=== PATIENT | male | born 1960 | race African-American/Black ===

== ENCOUNTER 2017-10-07 04:21 | Emergency (ER) | payer OTHER ==
[~2017-10-07] VITALS: Ht 188 cm; Wt 79.5 kg
[~2017-10-07 04:21] MED LIST: ALBU8I INH; HYDR-2768 PO; NAPR-576 PO; PERC5TAB12 PO; PRIL40CA PO; ZOFR8TAB PO
[2017-10-07 04:22] VITALS: BP 168/89; PULSE 70; RESP 18; TEMP 98.4; O2SAT 96
[2017-10-07] MEDS ORDERED: IPRASOL INH (04:43)
[2017-10-07] MEDS ORDERED: REFR0.5D9 EACH EYE (04:43)
[2017-10-07] MEDS ORDERED: AMLO10TA2 PO (04:43)
[2017-10-07] MEDS ORDERED: NAPR500T2 PO (04:43)
[2017-10-07] MEDS ORDERED: VENTAER INH (04:43)
[2017-10-07] MEDS ORDERED: PRED20 PO (04:43)
[2017-10-07] MEDS ORDERED: BIONSOL EACH EYE (04:43)
[2017-10-07] MEDS ORDERED: DOXY100C PO (04:43)
--- NOTE | 2017-10-07 05:14 | PD ---
HPI Chief Complaint: Medical Clearance Time Seen by Provider: 05:06 Travel History International Travel<30 days: No Contact w/Intl Traveler<30days: No Traveled to known affect area: No History of Present Illness HPI Patient is a 57-year-old male on doxycycline and prednisone for an upper respiratory infection presents emergency department for nonspecific numbness and tingling symptoms as well as feeling of heart fluttering. Patient states that this happened once tonight after he drank a few beers. He thinks it has got something to do with the medications he is prescribed, he states currently the symptoms are resolved. Denies any chest pain shortness breath abdominal pain nausea vomiting focalized weakness. States his symptoms are mild, resolved , context and associated signs and symptoms as above PFSH Past Medical History Heart Rhythm Problems: Yes (HEART MURMUR) Cancer: No Cardiovascular Problems: Yes (HTN, CAD) COPD: Yes Diabetes: No Diminished Hearing: No Endocrine: No Gastrointestinal Disorders: Yes (GERD) GERD: Yes Genitourinary: No Hepatitis: No Hiatal Hernia: Yes (REPAIRED) Hypertension: Yes Immune Disorder: No Musculoskeletal: Yes (LUMBAR DDD, ARTHRITIS) Neurologic: No Psychiatric: No Respiratory: Yes (COPD) Thyroid Disease: No Tetanus Vaccination: < 5 Years Influenza Vaccination: Yes Past Surgical History Abdominal Surgery: No AICD: No Cardiac Surgery: No Ear Surgery: No Endocrine Surgery: No Eye Surgery: No Genitourinary Surgery: No Gynecologic Surgery: No Joint Replacement: No Oral Surgery: No Pacemaker: No Thoracic Surgery: Yes (HIATAL HERNIA REPAIR) Other Surgery: Yes (L hand/wrist surg) Social History Alcohol Use: Yes (BEERS/WEEKENDS) Tobacco Use: No (quit) Substance Use: No Allergies-Medications (Allergen,Severity, Reaction): Coded Allergies: tramadol (Unverified Allergy, Unknown, 10/07/17) Reported Meds & Prescriptions Reported Meds & Active Scripts Active Reported Prednisone 20 Mg Tab 20 Mg PO DAILY Doxycycline Hyclate 100 Mg Cap 100 Mg PO BID Bion Tears PF Opthalmic Drops (Dextran 70 0.1%-Hypromellose 2910 0.3% Drops) 0.1 -0.3%/0.4 Ml Soln 1-2 Drop EACH EYE PRN PRN Refresh Plus Unit-Dose 0.5% Opth (Carboxymethylcellulose Sodium 0.5% Opth) 0.5% Drops 1 Drop EACH EYE QID Duoneb (Ipratropium-Albuterol Neb) 0.5-2.5 Mg/3 Ml Neb 1 Nebule INH Q6HR NEB Amlodipine (Amlodipine Besylate) 10 Mg Tab 10 Mg PO DAILY Naproxen 500 Mg Tab 500 Mg PO BID Ventolin Hfa 18 GM Inh (Albuterol Sulfate) 90 Mcg/Act Aer 2 Puff INH Q6H PRN Review of Systems Except as stated in HPI: all other systems reviewed are Neg Physical Exam Narrative GENERAL: Well-nourished, well-developed patient. SKIN: Focused skin assessment warm/dry. HEAD: Normocephalic. EYES: No scleral icterus. No injection or drainage. NECK: Supple, trachea midline. No JVD or lymphadenopathy. CARDIOVASCULAR: Regular rate and rhythm without murmurs, gallops, or rubs. RESPIRATORY: Breath sounds equal bilaterally. No accessory muscle use. GASTROINTESTINAL: Abdomen soft, non-tender, nondistended. MUSCULOSKELETAL: No cyanosis, or edema. NEUROLOGICAL: Cranial nerves II through XII grossly intact and nonfocal, 5 out of 5 strength in all 4 extremities, cerebellar testing negative, ambulance with an even narrow-base gait BACK: Nontender without obvious deformity. No CVA tenderness. Data Data Last Documented VS Vital Signs Date Time Temp Pulse Resp B/P (MAP) Pulse Ox O2 Delivery O2 Flow Rate FiO2 10/07/17 05:18 10/07/17 04:22 98.4 70 18 96 Room Air Orders Orders Ed Discharge Order (10/07/17 05:14) MDM Medical Decision Making Medical Screen Exam Complete: Yes Emergency Medical Condition: Yes Differential Diagnosis Medication reaction, anxiety reaction, acute medical emergency highly unlikely. Narrative Course Patient room to the emergency department, symptoms now resolved, he appears well and in no obvious distress with a reassuring physical examination. There is no indication for further workup at this time and he is stable for discharge. Discussed at his discretion he can discontinue the prednisone or continue it until it is gone depending on if he can tolerate the side effects. Diagnosis Primary Impression: Medication reaction Disposition: DISCHARGE HOME Condition: Stable Humberto Kovacs MD Oct 07, 2017 05:14
== END 2017-10-07 05:51 | disposition home or self-care (01) ==
LOC: NEPE 04:21
DX: I49.8 Other specified cardiac arrhythmias (principal); T38.0X5A Adverse effect of glucocorticoids and synthetic analogues, initial encounter; I10 Essential (primary) hypertension; I25.10 Atherosclerotic heart disease of native coronary artery without angina pectoris; J44.9 Chronic obstructive pulmonary disease, unspecified; M19.90 Unspecified osteoarthritis, unspecified site; Z88.8 Allergy status to other drugs, medicaments and biological substances; Z79.899 Other long term (current) drug therapy
CPT/HCPCS: 99281

== ENCOUNTER 2018-03-01 11:03 | Inpatient (IN) | payer OTHER ==
[~2018-03-01] VITALS: Ht 188 cm; Wt 71.8 kg
[~2018-03-01 11:03] MED LIST changes: -ALBU8I INH; +AMLO10TA2 PO; +BIONSOL EACH EYE; +DOXY100C PO; -HYDR-2768 PO; +IPRASOL INH; -NAPR-576 PO; +NAPR500T2 PO; -PERC5TAB12 PO; +PRED20 PO; -PRIL40CA PO; +REFR0.5D9 EACH EYE; +VENTAER INH; -ZOFR8TAB PO
[2018-03-01 11:11] VITALS: BP 128/89; PULSE 73; RESP 16; TEMP 97.8; O2SAT 99
[2018-03-01] MEDS ORDERED: ISOS30TA3 PO (11:21)
[2018-03-01] MEDS ORDERED: ASPI-516 CHEW (11:21)
[2018-03-01] MEDS ORDERED: TERB1CRE11 TOPICAL (11:21)
--- NOTE | 2018-03-01 11:29 | PD ---
HPI Chief Complaint: Chest Pain Time Seen by Provider: 11:11 Travel History International Travel<30 days: No Contact w/Intl Traveler<30days: No Traveled to known affect area: No History of Present Illness HPI 57-year-old male presents to the emergency department for evaluation of left lower chest pain that started this morning around 830 this morning. He states that he was going to the [place] for a CT of his neck that was scheduled for him. He was getting dressed when he felt sharp pain in his left lower chest. Patient states that he got his CT scan done and then went to see his primary care physician who then referred him to the emergency department. Patient reports history of CAD, hypertension, hyperlipidemia, angina, borderline diabetes, COPD. Patient states he was supposed to have a cardiac catheterization done several months ago, but was unable to do it due to not having a ride. Patient denies any recent stress test. 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 Patient currently rates the pain 4/10 to the left lower chest, sharp and stabbing, worse with movement and palpation. He reports associated nausea. He denies radiation of the pain. Patient reports chronic shortness of breath from COPD. He denies any worsening dyspnea. Patient denies history of CHF. He states he took one baby aspirin this morning. Moderate severity. PFSH Past Medical History Heart Rhythm Problems: Yes (HEART MURMUR) Cancer: No High Cholesterol: Yes Chest Pain: Yes COPD: Yes Coronary Artery Disease: Yes Diabetes: No Diminished Hearing: No Endocrine: No GERD: Yes Hepatitis: No Hiatal Hernia: Yes (REPAIRED) Hypertension: Yes Immune Disorder: No Inguinal Hernia: Yes Musculoskeletal: Yes (LUMBAR DDD, ARTHRITIS) Past Surgical History Abdominal Surgery: No AICD: No Cardiac Surgery: No Ear Surgery: No Endocrine Surgery: No Eye Surgery: No Genitourinary Surgery: No Gynecologic Surgery: No Joint Replacement: No Oral Surgery: No Thoracic Surgery: Yes (HIATAL HERNIA REPAIR) Other Surgery: Yes (L hand/wrist surg) Social History Alcohol Use: Yes (BEERS/WEEKENDS) Tobacco Use: No (quit) Substance Use: No Allergies-Medications (Allergen,Severity, Reaction): Coded Allergies: prednisone (Verified Allergy, Intermediate, Chest Pain, 03/01/18) tramadol (Unverified Allergy, Unknown, 03/01/18) Reported Meds & Prescriptions Reported Meds & Active Scripts Active Reported Terbinafine Topical 1 % Cream 1 Applic TOPICAL BID Aspirin 81 Mg Chew 81 Mg CHEW DAILY Isosorbide Mononitrate ER (Isosorbide Mononitrate) 30 Mg Raul 30 Mg PO DAILY Refresh Plus Unit-Dose 0.5% Opth (Carboxymethylcellulose Sodium 0.5% Opth) 0.5% Drops 1 Drop EACH EYE QID Duoneb (Ipratropium-Albuterol Neb) 0.5-2.5 Mg/3 Ml Neb 1 Nebule INH Q6HR NEB Amlodipine (Amlodipine Besylate) 10 Mg Tab 10 Mg PO DAILY Naproxen 500 Mg Tab 500 Mg PO BID Ventolin Hfa 18 GM Inh (Albuterol Sulfate) 90 Mcg/Act Aer 2 Puff INH Q6H PRN Review of Systems Except as stated in HPI: all other systems reviewed are Neg Physical Exam Narrative GENERAL: Well-nourished, well-developed male patient, ambulatory. Afebrile. SKIN: Focused skin assessment warm/dry. HEAD: Normocephalic. Atraumatic. EYES: No scleral icterus. No injection or drainage. NECK: Supple, trachea midline. No JVD or lymphadenopathy. CARDIOVASCULAR: Regular rate and rhythm without murmurs, gallops, or rubs. Bilateral radial and pedal pulses are 2+. RESPIRATORY: Breath sounds equal bilaterally. No accessory muscle use. Lung sounds are clear to auscultation. GASTROINTESTINAL: Abdomen soft, non-tender, nondistended. MUSCULOSKELETAL: No cyanosis, or edema. BACK: Nontender without obvious deformity. No CVA tenderness. Data Data Last Documented VS Vital Signs Date Time Temp Pulse Resp B/P (MAP) Pulse Ox O2 Delivery O2 Flow Rate FiO2 03/01/18 11:52 58 16 125/84 (98) 97 Room Air 03/01/18 11:11 97.8 Orders Orders Electrocardiogram (03/01/18 11:21) Basic Metabolic Panel (Bmp) (03/01/18 11:21) B-Type Natriuretic Peptide (03/01/18 11:21) Ckmb (Isoenzyme) Profile (03/01/18 11:21) Complete Blood Count With Diff (03/01/18 11:21) Magnesium (Mg) (03/01/18 11:21) Prothrombin Time / Inr (Pt) (03/01/18 11:21) Act Partial Throm Time (Ptt) (03/01/18 11:21) Troponin I (03/01/18 11:21) Chest, Single Ap (03/01/18 11:21) Ecg Monitoring (03/01/18 11:21) Bilateral Bp Monitoring (03/01/18 11:21) Iv Access Insert/Monitor (03/01/18 11:21) Oximetry (03/01/18 11:21) Oxygen Administration (03/01/18 11:21) Aspirin Chew (Aspirin Chew) (03/01/18 11:30) Sodium Chloride 0.9% Flush (Ns Flush) (03/01/18 11:30) CKMB (03/01/18 11:20) CKMB% (03/01/18 11:20) Labs Laboratory Tests Test 03/01/18 11:20 White Blood Count 6.9 TH/MM3 Red Blood Count 5.11 MIL/MM3 Hemoglobin 15.0 GM/DL Hematocrit 45.4 % Mean Corpuscular Volume 88.8 FL Mean Corpuscular Hemoglobin 29.3 PG Mean Corpuscular Hemoglobin Concent 33.0 % Red Cell Distribution Width 13.7 % Platelet Count 276 TH/MM3 Mean Platelet Volume 6.4 FL Neutrophils (%) (Auto) 71.8 % Lymphocytes (%) (Auto) 16.9 % Monocytes (%) (Auto) 10.0 % Eosinophils (%) (Auto) 0.5 % Basophils (%) (Auto) 0.8 % Neutrophils # (Auto) 5.0 TH/MM3 Lymphocytes # (Auto) 1.2 TH/MM3 Monocytes # (Auto) 0.7 TH/MM3 Eosinophils # (Auto) 0.0 TH/MM3 Basophils # (Auto) 0.1 TH/MM3 CBC Comment DIFF FINAL Differential Comment Prothrombin Time 10.0 SEC Prothromb Time International Ratio 1.0 RATIO Activated Partial Thromboplast Time 25.3 SEC Blood Urea Nitrogen 14 MG/DL Creatinine 0.83 MG/DL Random Glucose 96 MG/DL Calcium Level 8.2 MG/DL Magnesium Level 2.3 MG/DL Sodium Level 137 MEQ/L Potassium Level 4.0 MEQ/L Chloride Level 105 MEQ/L Carbon Dioxide Level 23.1 MEQ/L Anion Gap 9 MEQ/L Estimat Glomerular Filtration Rate 117 ML/MIN Total Creatine Kinase 390 U/L Creatine Kinase MB 4.2 NG/ML Creatine Kinase MB % 1.1 % Troponin I LESS THAN 0.02 NG/ML B-Type Natriuretic Peptide 9 PG/ML MDM Medical Decision Making Medical Screen Exam Complete: Yes Emergency Medical Condition: Yes Medical Record Reviewed: Yes Interpretation(s) Last Impressions Chest X-Ray 03/01/18 1121 Signed Impressions: CONCLUSION: Negative for acute process Differential Diagnosis ACS vs. chest wall pain vs. anxiety vs. pneumonia vs. pneumothorax vs. PE Narrative Course 57-year-old male presents to the emergency department for left lower chest pain that started this morning. EKG shows sinus rhythm, heart rate 66, no acute ST changes. IV access established. CBC, BMP, magnesium, CK, troponin, BNP, PTT, PT/INR, chest x-ray ordered and pending. Patient is given aspirin 81 mg p.o. CBC shows no acute abnormality. BMP shows no acute abnormality. Magnesium is 2.3. CK is 390. Troponin is less than 0.02. BNP is 9. Coags are unremarkable. Chest x-ray is negative for acute process. Patient will be admitted for chest pain center for repeat cardiac enzymes and EKGs. Diagnosis Primary Impression: Chest pain Qualified Codes: R07.9 - Chest pain, unspecified Admitting Information Admitting Physician Requests: Jamila Enciso Mar 01, 2018 11:29
[2018-03-01] MEDS ORDERED: SODIUM CHLORIDE 0.9% FLUSH 10 ML FLUSH IVF PRN (11:30)
[2018-03-01] MEDS ORDERED: ASPIRIN 81 MG CHEW TAB PO ONE (11:30)
--- NOTE | 2018-03-01 11:43 | RADRPT ---
EXAM DATE: 03/01/2018 11:36 AM EDT AGE/SEX: 57 years / Male INDICATIONS: Chest pain this morning. CLINICAL DATA: This is the patient's initial encounter. Patient reports that signs and symptoms have been present for 1 day and indicates a pain score of 6/10. MEDICAL/SURGICAL HISTORY: Hypertension. Chronic obstructive pulmonary disease. Coronary artery disease. None. COMPARISON: No prior exams available for comparison. FINDINGS: A single AP view of the chest demonstrates the lungs to be symmetrically aerated without evidence of mass, infiltrate or effusion. The cardiomediastinal contours are unremarkable. Osseous structures a re intact. CONCLUSION: Negative for acute process Electronically signed by: Lele Li MD 03/01/2018 11:41 AM EDT
[2018-03-01 11:52] VITALS: BP 125/84; PULSE 58; RESP 16; O2SAT 97
[2018-03-01 11:52] LABS: BASOPHIL # 0.1 TH/MM3 (0-0.2); BASOPHIL % 0.8 % (0.0-2.0); EOSINOPHIL % 0.5 % (0.0-4.0); HEMATOCRIT 45.4 % (39.0-51.0); LYMPH % 16.9 % (9.0-44.0); LYMPHOCYTE # 1.2 TH/MM3 (1.0-4.8); MEAN CELL VOLUME 88.8 FL (80.0-100.0); MEAN CORPUSCULAR HEMOGLOBIN 29.3 PG (27.0-34.0); MEAN PLATELET VOLUME 6.4 FL (7.0-11.0); MONOCYTE # 0.7 TH/MM3 (0-0.9); NEUT % 71.8 % (16.0-70.0); PLATELET COUNT 276 TH/MM3 (150-450); RED BLOOD COUNT 5.11 MIL/MM3 (4.50-5.90); RED CELL DISTRIBUTION WIDTH 13.7 % (11.6-17.2); WHITE BLOOD COUNT 6.9 TH/MM3 (4.0-11.0)
[2018-03-01 12:03] LABS: BICARBONATE 23.1 MEQ/L (21.0-32.0); BLOOD UREA NITROGEN 14 MG/DL (7-18); CALCIUM 8.2 MG/DL (8.5-10.1); CHLORIDE 105 MEQ/L (98-107); CREATININE 0.83 MG/DL (0.60-1.30); GLOMERULAR FILTRATION RATE 117 ML/MIN (>89); GLUCOSE,RANDOM 96 MG/DL (74-106); MAGNESIUM 2.3 MG/DL (1.5-2.5); SODIUM (NA) 137 MEQ/L (136-145)
[2018-03-01 12:08] LABS: TROPONIN I LESS THAN 0.02 NG/ML (0.02-0.05)
[2018-03-01] MEDS ORDERED: SODIUM CHLORIDE 0.9% FLUSH 10 ML FLUSH IV FLUSH PRN (13:00)
[2018-03-01] MEDS ORDERED: ONDANSETRON ODT 4 MG TAB PO PRN (13:00)
[2018-03-01] MEDS ORDERED: NITROGLYCERIN 0.4 MG SL 25 TABS/BTL SL PRN (13:00)
--- NOTE | 2018-03-01 13:51 | HHI.HP ---
HPI Primary Care Physician [facility] Chief Complaint Chest pain History of Present Illness 57-year-old male history of hypertension and COPD presents emergency room for further evaluation chest pain and headache. Onset 830 am. Occurred 15 minutes after taking Imdur. Developed left sided headache. Moderate severity. A few minutes chanell developed left anterior chest pain. Characterized as "being punched." Moderate in severity. Associated symptoms included nausea and diaphoresis. Denied dyspnea or vomiting. Duration of moderate chest discomfort 3 hours. Currently chest discomfort described as a mild ache with intermittent sharp, "nagging" pain. Deep breathing makes discomfort worse. No particular movement or position makes pain better or worse. Headache since resolved. Scheduled for a CT of neck today [facility]. After scan completed requested to see his PCP regarding above symptoms. The [facility] recommended EMS transport to ER for further evaluation. Recent abnormal nocardial perfusion study 5 months ago.. Cardiac catheterization scheduled, he unfortunately unable to keep appointment time due to inability to find ride to facility. Unable to reschedule planned cardiac catheterization since. Imdur started 5 months ago after abnormal cardiac stress test. Cardiac testing completed due to intermittent chest pressure. It was uncertain if his chest pressure was cardiac related verses his COPD. Review of Systems General: No fatigue, weakness, fever, chills, recent illness, or change in appetite. Has been in his general state of health. HEENT: NAIR resolved, no vision changes, no nasal congestion or drainage, no dysphasia CV: Continues to have chest discomfort as stated above. No palpitations. Nonexertional intermittent leg pain. Experiences some exertional chest pain, stating it is difficult for him to determine if discomfort if related to cardiac versus COPD. No history of ID or coronary stents. RESP: History of COPD, use of Combivent and albuterol daily. No recent upper respiratory infection. Respiratory function within his normal limits. GI: No nausea, vomiting, bowel changes, diarrhea, constipation, pain, distention , melena, or blood in the stool. : No dysuria, urgency, frequency EXT: No lower leg edema. Chronic intermittent bilateral lower leg weakness and numbness. MS: No discomfort or change in ROM NEURO: No change in memory, dizziness, difficulty with balance, LOC, or motor/ sensory deficits PSYCH: No anxiety, depression, or suicidal ideation SKIN: No rashes, no concerning lesions Past Family Social History Allergies: Coded Allergies: prednisone (Verified Allergy, Intermediate, Chest Pain, 03/01/18) tramadol (Unverified Allergy, Unknown, 03/01/18) Past Medical History Hypertension, COPD, degenerative disc disease Past Surgical History Hiatal hernia, left hand/wrist sx Reported Medications Reported Meds & Active Scripts Active Reported Terbinafine Topical 1 % Cream 1 Applic TOPICAL BID Aspirin 81 Mg Chew 81 Mg CHEW DAILY Isosorbide Mononitrate ER (Isosorbide Mononitrate) 30 Mg Raul 30 Mg PO DAILY Refresh Plus Unit-Dose 0.5% Opth (Carboxymethylcellulose Sodium 0.5% Opth) 0.5% Drops 1 Drop EACH EYE QID Duoneb (Ipratropium-Albuterol Neb) 0.5-2.5 Mg/3 Ml Neb 1 Nebule INH Q6HR NEB Amlodipine (Amlodipine Besylate) 10 Mg Tab 10 Mg PO DAILY Naproxen 500 Mg Tab 500 Mg PO BID Ventolin Hfa 18 GM Inh (Albuterol Sulfate) 90 Mcg/Act Aer 2 Puff INH Q6H PRN Active Ordered Medications Current Medications Medications (Trade) Dose Ordered Sig/Toni Route Start Time Stop Time Status Last Admin (NS Flush) 2 ml UNSCH PRN IV FLUSH 03/01/18 13:00 (NS Flush) 2 ml BID IV FLUSH 03/01/18 21:00 (Tylenol) 500 mg Q4H PRN PO 03/01/18 13:00 (Nitrostat Sl) 0.4 mg Q5M PRN SL 03/01/18 13:00 (Aspirin) 325 mg DAILY PO 03/02/18 09:00 (Zofran Odt) 4 mg Q6H PRN PO 03/01/18 13:00 Family History Noncontributory for early onset cardiovascular disease. Social History Reports coronary artery disease diagnosed via abnormal myocardial perfusion study 5 months ago. Known hypertension. No known hyperlipidemia or diabetes. Former smoker quit 1 year ago. 36 pack year history. Single. Retired [place]. 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 Past cardiac testing Reports recent abnormal Lexiscan 5 months ago. Missed his scheduled appointment for cardiac catheterization 5 months ago and has been unable to reschedule. Physical Exam Vital Signs Vital Signs Date Time Temp Pulse Resp B/P (MAP) Pulse Ox O2 Delivery O2 Flow Rate FiO2 03/01/18 11:52 58 16 125/84 (98) 97 Room Air 03/01/18 11:25 Room Air 03/01/18 11:25 100 Room Air 03/01/18 11:13 62 16 03/01/18 11:11 97.8 73 16 128/89 (102) 99 Physical Exam GENERAL: Alert WN, WD, NAD, pleasant, -Ch[place]an male HEAD: NC, AT EYES: Sclera clear, conjunctiva without injection, pupils equal and round ENT: Mucous membranes pink and moist, no nasal discharge or bleeding CV: RRR, soft systolic murmur, no rub. no S3-S4. RESP: Diminished lungs throughout bilateral, no crackles, wheeze, or rhonchi, symmetrical chest rise, nonlabored, able to speak in full sentences ABD: Soft, NT, ND, no masses, positive bowel tones EXT: Pulses +2x4, no dependent edema MS: Normal tone x4 extremities, nontender, no obvious deformities, full range of motion NEURO: CN II through CN XII grossly intact, motor strength 5/5 PSYCH: A+O x3, pleasant affect, appropriate speech, mood, insight and judgment SKIN: Normal turgor, normal texture, no lesions, no rashes, brisk cap refill, even hair distribution Laboratory Laboratory Tests Test 03/01/18 11:20 White Blood Count 6.9 Red Blood Count 5.11 Hemoglobin 15.0 Hematocrit 45.4 Mean Corpuscular Volume 88.8 Mean Corpuscular Hemoglobin 29.3 Mean Corpuscular Hemoglobin Concent 33.0 Red Cell Distribution Width 13.7 Platelet Count 276 Mean Platelet Volume 6.4 Neutrophils (%) (Auto) 71.8 Lymphocytes (%) (Auto) 16.9 Monocytes (%) (Auto) 10.0 Eosinophils (%) (Auto) 0.5 Basophils (%) (Auto) 0.8 Neutrophils # (Auto) 5.0 Lymphocytes # (Auto) 1.2 Monocytes # (Auto) 0.7 Eosinophils # (Auto) 0.0 Basophils # (Auto) 0.1 CBC Comment DIFF FINAL Differential Comment Prothrombin Time 10.0 Prothromb Time International Ratio 1.0 Activated Partial Thromboplast Time 25.3 Blood Urea Nitrogen 14 Creatinine 0.83 Random Glucose 96 Calcium Level 8.2 Magnesium Level 2.3 Sodium Level 137 Potassium Level 4.0 Chloride Level 105 Carbon Dioxide Level 23.1 Anion Gap 9 Estimat Glomerular Filtration Rate 117 Total Creatine Kinase 390 Creatine Kinase MB 4.2 Creatine Kinase MB % 1.1 Troponin I LESS THAN 0.02 B-Type Natriuretic Peptide 9 Result Diagram: 03/01/18 1120 03/01/18 112 Imaging Last 24 hours Impressions Chest X-Ray 03/01/18 1121 Signed Impressions: CONCLUSION: Negative for acute process Course EKG NSR, normal axis, possible atrial enlargement, no st t segment changes Caprini VTE Risk Assessment Caprini VTE Risk Assessment: No/Low Risk (score <= 1) Caprini Risk Assessment Model Point Value = 1 Point Value = 2 Point Value = 3 Point Value = 5 Age 41-60 Minor surgery BMI > 25 kg/m2 Swollen legs Varicose veins or History of unexplained or recurrent spontaneous Oral contraceptives or hormone replacement Sepsis (< 1 month) Serious lung disease, including pneumonia (< 1 month) Abnormal pulmonary function Acute myocardial infarction Congestive heart failure (< 1 month) History of inflammatory bowel disease Medical patient at bed rest Age 61-74 Arthroscopic surgery Major open surgery (> 45 min) Laparoscopic surgery (> 45 min) Malignancy Confined to bed (> 72 hours) Immobilizing plaster cast Central venous access Age >= 75 History of VTE Family history of VTE Factor V Leiden Prothrombin [id number] Lupus anticoagulant Anticardiolipin antibodies Elevated serum homocysteine Heparin-induced thrombocytopenia Other congenital or acquired thrombophilia Stroke (< 1 month) Elective arthroplasty Hip, pelvis, or leg fracture Acute spinal cord injury (< 1 month) Prophylaxis Regimen Total Risk Factor Score Risk Level Prophylaxis Regimen 0-1 Low Early ambulation 2 Moderate Order ONE of the following: *Sequential Compression Device (SCD) *Heparin 5000 units SQ BID 3-4 Higher Order ONE of the following medications: *Heparin 5000 units SQ TID *Enoxaparin/Lovenox 40 mg SQ daily (WT < 150 kg, CrCl > 30 mL/min) *Enoxaparin/Lovenox 30 mg SQ daily (WT < 150 kg, CrCl > 10-29 mL/min) *Enoxaparin/Lovenox 30 mg SQ BID (WT < 150 kg, CrCl > 30 mL/min) AND/OR *Sequential Compression Device (SCD) 5 or more Highest Order ONE of the following medications: *Heparin 5000 units SQ TID (Preferred with Epidurals) *Enoxaparin/Lovenox 40 mg SQ daily (WT < 150 kg, CrCl > 30 mL/min) *Enoxaparin/Lovenox 30 mg SQ daily (WT < 150 kg, CrCl > 10-29 mL/min) *Enoxaparin/Lovenox 30 mg SQ BID (WT < 150 kg, CrCl > 30 mL/min) AND *Sequential Compression Device (SCD) Assessment and Plan Assessment and Plan Admitted to chest pain center. Continue ACS protocol initiated ER. Will be seen and evaluated by Dr. Polo Sanchez. Due to reported recent abnormal Lexiscan and pending cardiac catheterization, further recommendations to follow. Discussed possibility of repeating myocardial perfusion study or completing a cardiac cauterization. Wanda Kerns Mar 01, 2018 13:51
[2018-03-01 14:20] VITALS: BP 124/73
[2018-03-01 15:55] VITALS: BP 130/96; PULSE 56; RESP 18; TEMP 98.9; O2SAT 99
[2018-03-01 16:31] LABS: TROPONIN I LESS THAN 0.02 NG/ML (0.02-0.05)
[2018-03-01] MEDS ORDERED: RESP: ALBUTEROL 2.5 MG/3 ML NEB (PRN) NEB (17:00)
[2018-03-01 19:49] VITALS: BP 112/73; PULSE 57; RESP 17; TEMP 98.4; O2SAT 96
--- NOTE | 2018-03-01 19:56 | EKG ---
Date Performed: 03/01/2018 Time Performed: 11:09:44 PTAGE: 57 years EKG: Sinus rhythm NORMAL ECG PREVIOUS TRACING : 02/26/2016 12.26 Since the previous tracing, no significant change noted DOCTOR: Ankita Camilo Interpretating Date/Time 03/01/2018 19:55:04
[2018-03-01 23:00] VITALS: PULSE 54
[2018-03-02] VITALS (18 sets, daily range): BP systolic 134–146; BP diastolic 79–91; PULSE 54–66; RESP 16–20; TEMP 98–98.9; O2SAT 97–98
[2018-03-02] MEDS: ACETAMINOPHEN 500 MG CPLT PO PRN ×2 (00:26→18:47)
[2018-03-02] MEDS: SODIUM CHLORIDE 0.9% FLUSH 10 ML FLUSH IV FLUSH SCH ×3 (00:26→20:41)
[2018-03-02 03:49] LABS: TROPONIN I LESS THAN 0.02 NG/ML (0.02-0.05)
--- NOTE | 2018-03-02 08:21 | HHI.PR ---
Subjective Remarks Follow up for chest pain. The patient reports only brief mild episode of chest pain overnight, resolved on its own. Denies any palpitations or shortness of breath. Denies any other medical complaints. He is looking forward to cardiac catheterization. Objective Vitals Vital Signs Date Time Temp Pulse Resp B/P (MAP) Pulse Ox O2 Delivery O2 Flow Rate FiO2 03/02/18 07:27 98.0 60 20 134/87 (103) 97 03/02/18 04:22 98.3 57 16 145/85 (105) 98 03/02/18 00:07 98.4 63 16 143/83 (103) 98 03/01/18 23:00 54 03/01/18 19:49 98.4 57 17 112/73 (86) 96 03/01/18 15:55 98.9 56 18 130/96 (107) 99 03/01/18 14:20 56 5 124/73 (90) 99 03/01/18 11:52 58 16 125/84 (98) 97 Room Air 03/01/18 11:25 Room Air 03/01/18 11:25 100 Room Air 03/01/18 11:13 62 16 03/01/18 11:11 97.8 73 16 128/89 (102) 99 Result Diagram: 03/01/18 1120 03/01/18 1120 Imaging Last Impressions Chest X-Ray 03/01/18 1121 Signed Impressions: CONCLUSION: Negative for acute process Objective Remarks GENERAL: Well-nourished, well-developed pleasant middle aged AA male patient in [facility]. SKIN: Warm and dry. No rash. HEENT: Normocephalic. Atraumatic. Pupils equal and round. Mucous membranes pink and moist. CARDIOVASCULAR: Regular rate and rhythm. No murmur appreciated. RESPIRATORY: No accessory muscle use. Clear to auscultation. Breath sounds equal bilaterally. GASTROINTESTINAL: Abdomen soft, non-tender, nondistended. Normoactive bowel sounds x4. MUSCULOSKELETAL: No obvious deformities. Extremities without clubbing, cyanosis , or edema. NEUROLOGICAL: Awake and alert. No obvious cranial nerve deficits. Motor grossly within normal limits. Moving all extremities spontaneously. Normal speech. PSYCHIATRIC: Appropriate mood and affect; insight and judgment normal. Medications and IVs Current Medications Medications (Trade) Dose Ordered Sig/Toni Route Start Time Stop Time Status Last Admin (NS Flush) 2 ml UNSCH PRN IV FLUSH 03/01/18 13:00 (NS Flush) 2 ml BID IV FLUSH 03/01/18 21:00 03/02/18 00:26 (Tylenol) 500 mg Q4H PRN PO 03/01/18 13:00 03/02/18 00:26 (Nitrostat Sl) 0.4 mg Q5M PRN SL 03/01/18 13:00 (Aspirin) 325 mg DAILY PO 03/02/18 09:00 (Zofran Odt) 4 mg Q6H PRN PO 03/01/18 13:00 (Norvasc) 10 mg DAILY PO 03/02/18 09:00 (Imdur) 30 mg DAILY PO 03/02/18 09:00 (Albuterol Neb) 2.5 mg Q2HR NEB PRN NEB 03/01/18 17:00 A/P Assessment and Plan 57-year-old male with history of hypertension and COPD presents with chest pain. Chest pain: Initially admitted to [facility], however patient with abnormal nuclear stress test 5 months ago with plans for outpatient cardiac cath, however has been unable to have procedure due to transportation issues. -CXR reviewed and unremarkable -ACS ruled out with negative serial cardiac enzymes 3, and EKG without acute ischemic changes -Obtain records of nuclear stress test done at the OR -Monitor on telemetry -Continue aspirin, imdur -Check lipid panel -Unable to initiate beta-luis angel therapy due to bradycardia -Consult cardiology for cardiac catheterization COPD: Chronic, no wheezing on exam, stable on room air -Continue patient's duo nebs q6h Hypertension: Chronic, BP fairly well controlled -Continue patient's norvasc 10mg daily -Monitor BP, adjust antihypertensives as needed DVT Prophylaxis: teds/SCDs Discharge Planning Await cardiology evaluation, likely going for cardiac catheterization. Mihaela Dahl PA-C Mar 02, 2018 8:21 am
[2018-03-02] MEDS: ISOSORBIDE MONONITRATE 30 MG CR TAB (IMDUR) PO SCH (09:45)
[2018-03-02] MEDS: ASPIRIN 325 MG TAB PO SCH (09:45)
[2018-03-02 11:50] LABS: CHOLESTEROL/ HDL RATIO 1.57 RATIO; HDL CHOLESTEROL 96.7 MG/DL (40.0-60.0)
--- NOTE | 2018-03-02 12:17 | MB ---
cc: Milo Salgado MD DATE: 03/01/2018 HISTORY OF PRESENT ILLNESS: Cesar is a very pleasant 57-year-old gentleman followed in at the [facility], had abnormal nuclear stress test, referred for heart catheterization in [place]. He did not followup with a heart catheterization. He presents to [facility] with chest pain, who was seen by Dr. Polo Sanchez. Dr. Sanchez has recommended to proceed with heart catheterization not receive his nuclear stress. The patient currently resting in bed, in no acute distress. No fevers, chills, cough . PAST MEDICAL HISTORY: Per his History of Present Illness. PHYSICAL EXAMINATION: VITAL SIGNS: Stable. GENERAL: He is alert and oriented x 3. NECK: Supple. No JVD. No bruit. CARDIOVASCULAR: . LUNGS: Clear to auscultation bilaterally. ABDOMEN: Soft, nontender, nondistended with positive bowel sounds. EXTREMITIES: No lower extremity edema. HE HAS THE FOLLOWING DIAGNOSES: 1. Chest pain. 2. Positive myocardial perfusion study. DISCUSSION: At this point in time, I agree with Dr. Sanchez. Given the patient's persistent chest pain requiring evaluation in the emergency room with prior positive myocardial perfusion study that left heart catheterization is medically necessary. The patient denies history of CVA, iodine allergy or no previous blood transfusion. Plan is for left heart catheterization on , 03/02/2018. Discussed at the bedside with the nurse and also Dr. Sanchez. Milo Salgado MD [facility] [place] [facility]/ , 04:51 PM , 05:17 PM
[2018-03-02] MEDS ORDERED: MIDAZOLAM HCL 2 MG/2 ML VIAL ONE (13:41)
[2018-03-02] MEDS ORDERED: HEPARIN-NS/PF INJ 1,500 ML ONE ×2 (13:41→14:21)
[2018-03-02] MEDS ORDERED: LIDOCAINE HCL 1% PF 30 ML VIAL ONE ×2 (13:42→14:38)
[2018-03-02] MEDS ORDERED: ADENOSINE STRESS TEST INJ 90 MG/30 ML VIAL ONE (14:21)
--- NOTE | 2018-03-02 14:43 | MR ---
cc: Milo Salgado MD DATE: 03/02/2018 PROCEDURE: Left heart catheterization, left ventriculography, coronary angiography. INDICATIONS: Unstable angina, reported abnormal myocardial perfusion study in [place], which we do not have the results of and multiple cardiac risk factors. I have discussed the case in collaboration with Dr. Sanchez. We both agreed that the patient needs left heart catheterization based on multiple cardiac risk factors. METHOD: The patient was brought to the cardiac catheterization laboratory, prepped and draped in the usual sterile fashion. 10 mL of 1% lidocaine was used to locally anesthetize the right common femoral artery. A 4-Slovak sheath was placed in the right common femoral artery . FINDINGS: LVEDP is 0. LV pressure is 150/0-1. Ejection fraction 60%. The right coronary artery is large and dominant and has a torres's crook in the proximal segment. It has a proximal 60-70% stenosis. there is mild diffuse disease in the mid-segment up to 30% angiographically. Left main coronary artery has no significant disease angiographically. Left circumflex vessel has no significant disease angiographically. First obtuse marginal vessel is a small vessel, 2 mm in diameter. No significant disease angiographically. At that segment that there is 150 degree bend with a 30 to 40% stenosis. The AV groove of the left circumflex then gives off a moderate to large-sized obtuse marginal vessel, which bifurcates, has an ostial 20-30% stenosis proximal to the bifurcation. LAD is large and transapical, 5 mm diameter proximal, is a transapical vessel. The diagonal vessel is a large vessel, 3 mm in diameter with no significant disease in the graft. CONCLUSION: Unstable angina. Potential culprit 70% proximal right coronary artery stenosis. PLAN: FFR further than evaluation. Milo Salgado MD AWEllie/KIRBY , 02:17 PM , 02:42 PM
[2018-03-02] MEDS ORDERED: SODIUM CHLORIDE 0.9% FLUSH 10 ML FLUSH IV FLUSH PRN (15:00)
[2018-03-02] MEDS ORDERED: MISC INFORMATION XX ONE (15:00)
--- NOTE | 2018-03-02 15:06 | CATHPROC ---
[facility] HIS Report Study Information Study Number Admission Scheduled Start Study Start [id number] Mar 01 2018 12:37PM 03/02/2018 Mar 02 2018 1:25PM [place] [facility]iac Catheterization Admit Source Facility Department Emergency department [facility] - Box Truck Owner Operator Physician and Clinical Staff Initial Milo East Watch Engineer Lenard RN, Fermin Recorder Gabriel Martinez,RT(R) Rubia Matos,RT(R) (BS) Procedures Performed Procedure Location (Site) Vessel Name Coronary Angiograms LCA Left Coronary Coronary Angiograms RCA Right Coronary LV Gram-hand inj. LV LV Ventricle Wire insertion Fem Art (right) Femoral Art Equipment Time Principal System Software Engineer Description Size Mfg Part Number Used/Scraped TRANSDUCER, TRUWAVE [id number] 14:04 PARKINSON ARREAGA * Used W/STOCKCOCK *[id number] TRANSDUCER, TRUWAVE [id number] 14:28 PARKINSON ARREAGA * Used W/STOCKCOCK *[id number] *[id number] *[id number] *[id number] 14:04 [employer]ES BLANKET,WARM AIR CCL * Used *[id number] 14:28 [employer] BLANKET,WARM AIR CCL * Used *[id number] 14:04 [employer] IND[employer]RIES PACK, CCL CUSTOM * Used *[id number] 14:28 [employer] PACK, CCL CUSTOM * Used *[id number] 14:28 MEDLINE PACER PEN, SKIN DUAL W/ RULER * Used *[id number] 14:04 MEDLINE PACER PEN, SKIN DUAL W/ RULER * Used *[id number] 14:30 [employer] MEDICAL PACK, ANGIOPLASTY * [id number] Used [id number] 14:29 [employer] MEDICAL SHEATH, FR6.5 PRELUDE 11CM FR 6.5 038ACT Used *[id number] 14:28 [employer]IT MEDICAL WIRE, 3MMJ .035 180CM 180CM Used *[id number] 14:04 [employer] MEDICAL WIRE, 3MMJ .035 180CM 180CM Used *[id number] 14:04 NAMIC MANIFOLD, 4 PORT * Used *[id number] 14:28 NAMIC MANIFOLD, 4 PORT * Used *[id number] 14:28 [employer]COMED OMNIPAQUE, 350 MG, 150ML 150ML [id number] Used 14:04 [employer]COMED OMNIPAQUE, 350 MG, 150ML 150ML [id number] Used [id number] 14:04 TERUMO MEDICAL SHEATH, FR4 TERUMO (10CM) FR 4 Used *[id number] 14:37 [employer] PRIME WIRE, VERRATA 185CM 185CM Used *[id number] Equipment Model, Serial, Lot Number and Expiration Data Description Model Number Serial Number Lot Number Expiration Date PRIME WIRE, VERRATA 185CM [id number] 02-02-2021 History: Allergies Allergy Reaction tramadol prednisone Chest Pain History: Risk Factors Family History of Hypertension Dyslipidemia Previous MS Previous Heart Failure Premature CAD Yes Yes Yes No No Prior Valve Prior PCI Prior CABG Surgery No No No Cerebrovascular Peripheral Artery Chronic Lung On Dialysis Diabetes Disease Disease Disease No No No Yes No History: Stress Tests Stress or Imaging Studies Performed Yes Standard Exercise Stress Test No Stress Echo No Stress Test SPECT Stress Test SPECT Result Yes Unavailable Stress Test CMR No Cardiac CTA Coronary Calcium Score No No History: Other Current Smoker Method Packs a Day Years Used Pack Years No Cigarettes 1 36 36 Labs Hgb (g/dl) Hct (%) WBC (l/cumm) Platelets (thousands) 11.60-17.00 35.00-51.00 4.00-11.00 150.00-450.00 15.0 45.4 6.9 276 Glucose (mg/dl) BUN (mg/dl) Creatinine (mg/dl) BUN:Creatinine (1:x) 74.00-106.00 7.00-18.00 0.50-1.30 10.00-20.00 96 14 0.8 17.5 Na (meq/l) K (meq/l) 136.00-145.00 3.50-5.10 137 4 INR (PTT:PT) 0.90-1.10 1 Troponin I (ng/ml) CPK-MB (ng/ML) 0.02-0.05 0.50-3.60 0.02 Not Drawn Medication Medication Total Dose (Bolus/Oral) Medication Total Dosage/Unit 1% XYLOCAINE 40 mL FENTANYL 50 mcg HEPARIN 6000 units VERSED 2 mg Medications (Bolus/Oral) Medication Time Given Dosage/Unit Administered By Reason VERSED 03/02/2018 2:00:59 PM 1 mg Fermin Weinberg RN 1 mg VERSED given in lab by Fermin Weinberg RN via Peripheral IV. Ordered by Milo Salgado. FENTANYL 03/02/2018 2:01:49 PM 25 mcg Fermin Weinberg RN 25 mcg FENTANYL given in lab by Fermin Weinberg RN in Left Antecubital via Peripheral IV. Ordered by Milo Godwin. 1% XYLOCAINE 03/02/2018 2:03:56 PM 20 mL Milo Salgado 20 mL 1% XYLOCAINE given in lab by Milo Salgado in Right Groin via Subcutaneous. Ordered by Milo Lennon. VERSED 03/02/2018 2:37:59 PM 1 mg Fermin Weinberg RN 1 mg VERSED given in lab by Fermin Weinberg RN via Peripheral IV. Ordered by Milo Salgado. FENTANYL 03/02/2018 2:38:12 PM 25 mcg Fermin Weinberg RN 25 mcg FENTANYL given in lab by Fermin Weinberg RN via Peripheral IV. Ordered by Milo Salgado. 1% XYLOCAINE 03/02/2018 2:39:39 PM 20 mL Milo Salgado 20 mL 1% XYLOCAINE given in lab by Milo Salgado in Right Groin via Subcutaneous. Ordered by Milo Lennon. HEPARIN 03/02/2018 2:40:16 PM 6000 units Fermin Weinberg RN 6000 units HEPARIN given in lab by Fermin Weinberg RN via Peripheral IV. Ordered by Milo Salgado. Medication (Drip) Medication Time Given Dosage/Unit Concentration/Unit Diluent (ml) Solution ADENOSINE DRIP 03/02/2018 2:46:52 PM 140 mcg/kg/min 90 mg 90 NaCl .9 140 mcg/kg/min ADENOSINE DRIP given in lab by Fermin Weinberg RN via Peripheral IV. Pump/Drip Flow = 646 .8 ml/hr using NaCl .9 with a concentration of 90 mg in 90 ml. Ordered by Milo Salgado. ADENOSINE DRIP 03/02/2018 2:51:13 PM 0 units/hr 0 D5W STOPPED 0 units/hr ADENOSINE DRIP STOPPED given in lab by Fermin Weinberg RN. Pump/Drip Flow = 0 ml/hr using D5W . Ordered by Milo Salgado. IV Solutions 03/02/2018 1:44:27 PM 0 mL (IV) 500 NaCl .9 Patient arrived on IV Solutions given by Damian, Milo in Left Antecubital via Peripheral IV. Pump /Drip Flow = 20 ml/hr using NaCl .9. Ordered by Milo Salgado. Initial Case Assessment Cardiovascular HR Rhythm NIBP Chest Pain 65 sr 148/100 0 Edema Present Skin color Skin None Normal Warm Dry Circulatory - Right Pulses Posterior Tibial Femoral 3 3 Scale (0,1,2,3,4,d) Circulatory - Left Pulses Posterior Tibial Femoral 3 3 Scale (0,1,2,3,4,d) Neurological State Oriented to time-place- Alert Moves all extremities person Final Case Assessment Cardiovascular HR Rhythm NIBP Chest Pain 60 sr 121/76 0 Edema Present Skin color Skin None Normal Warm Dry Circulatory - Right Pulses Posterior Tibial Femoral 3 3 Scale (0,1,2,3,4,d) Circulatory - Left Pulses Posterior Tibial Femoral 3 3 Scale (0,1,2,3,4,d) Neurological State Oriented to time-place- Alert Moves all extremities person Respiration - General Respiration Rate SpO2 (%) O2 (lpm) (B/min) 18 96 96 Chronological Log Time Study Chronological Log 13:29:59 Patient arrived via Bed. 13:30:01 Patient Name, D.O.B, / Armband Verified By R.N. 13:30:02 Consent signed by the physician and the patient and verified by the Box Truck Owner Operator staff. 13:30:03 Pre-op and post- op instructions given; patient acknowledges understanding of instructions. 13:30:25 Verbal Stimulation=2 Physical Stimulation=2 Airway=2 Respiration=2 TOTAL=8. (0=absent, 1=li mited, 2=present) 13:30:35 Presedation assessment performed by Box Truck Owner Operator RN. 13:30:37 Patient has been NPO for More than 6Hrs. 13:30:41 Skin Breakdown-none present per patient. Vitals capture started with the following parameters, Patient=Adult, Interval=5 min, Initial Pr vfuvdr=692 mmHg, 13:35:44 Deflation Rate=5 mmHg, Cuff placed on Left Arm 13:36:12 HR=80 bpm, DAEA=691/109 mmhg, SpO2=98.0 %, Resp=24 B/min, Goss=2 13:38:17 Reference ECG taken 13:41:24 HR=73 bpm, FPNU=623/93 mmhg, ChV6=398.0 %, Resp=15 B/min, Goss=2 13:43:47 A # 20 IV was noted in the Antecubital (left). Grade = 0 Patient arrived on IV Solutions given by Milo Salgado in Left Antecubital via Peripheral IV . Pump/Drip Flow = 20 13:44:27 ml/hr using NaCl .9. Ordered by Milo Salgado. 13:46:23 HR=69 bpm, JOTN=233/100 mmhg, SpO2=98.0 %, Resp=10 B/min, Goss=2 Assessment: Initial Case, HR=65 BPM, Rhythm=sr, ZQNV=859/100 mmhg, Chest Pain=0, Edema=None, Co lilian=Normal, Skin = Warm, Dry 13:48:32 Right Pulses: Post Tib=3, Femoral=3 Left Pulses: Post Tib=3, Femoral=3 Neurological: State=Alert, Ox3, WELCH 13:49:01 Bilateral groins prepped with 2% chlorhexidine, and draped after a 3 minute waiting time. 13:49:32 Pressure channel 1 zeroed. 13:50:56 MD paged 13:51:08 HR=69 bpm, UZWE=016/104 mmhg, SpO2=98.0 %, Resp=16 B/min, Goss=2 13:56:13 HR=62 bpm, WLFP=624/96 mmhg, SpO2=96.0 %, Resp=16 B/min, Goss=2 14:00:49 MD arrived. 14:00:59 1 mg VERSED given in lab by Fermin Weinberg RN via Peripheral IV. Ordered by Milo Salgado. 14:01:20 HR=67 bpm, KVCT=156/82 mmhg, SpO2=96.0 %, Resp=18 B/min, Goss=2 14:01:49 25 mcg FENTANYL given in lab by Fermin Weinberg RN in Left Antecubital via Peripheral IV. Orde red by Milo Salgado. Time Out. Correct patient, correct procedure, correct physician, labs, allergies, and equipment verified with lab support service tech 14:03:27 team present. Fire risk assesment completed (see hard stop sheet for coding). Time Out Conc urred by MD and individual staff in procedure. 14:03:33 Presedation re-assessment performed by Box Truck Owner Operator RN. 14:03:35 Case Start 14:03:36 Verbal Stimulation=2 Physical Stimulation=2 Airway=2 Respiration=2 TOTAL=8. (0=absent, 1=li mited, 2=present) 20 mL 1% XYLOCAINE given in lab by Milo Salgado in Right Groin via Subcutaneous. Ordered by Damian, 14:03:56 Milo. 14:04:11 Access site was Right Femoral Artery. 14:04:32 A SHEATH, FR4 TERUMO (10CM) FR 4 was advanced into the Fem Art (right) using the Percutaneo us technique. A JR 4.0 INFINITI CATHETER FR 4 was advanced over a wire. OMNIPAQUE, 350 MG, 150ML 150ML was us ed for 14:04:47 injections. Recorded Pressure: LV, HR=65, Condition=Condition 1 14:05:41 (Left Ventricle) LV 120/1/6 14:05:54 The LV was manually injected with 10 cc's and visualized. OMNIPAQUE, 350 MG, 150ML 150ML us ed. Recorded Pressure: LV, Ao, HR=63, Condition=Condition 1 14:06:07 (Left Ventricle) LV 140/-2/4, (Aorta) Ao 136/79/101 14:06:21 HR=64 bpm, JRTF=402/87 mmhg, SpO2=95.0 %, Resp=17 B/min, Goss=2 14:06:32 The RCA was injected and visualized at various angles. OMNIPAQUE, 350 MG, 150ML 150ML used . 14:07:01 Catheter was removed A JL 4.0 INFINITI CATHETER FR 4 was advanced over a wire. OMNIPAQUE, 350 MG, 150ML 150ML was us ed for 14:07:05 injections. 14:07:46 The LCA was injected and visualized at various angles. OMNIPAQUE, 350 MG, 150ML 150ML used . 14:10:24 Catheter was removed 14:11:18 HR=66 bpm, ZSUT=520/83 mmhg, SpO2=96.0 %, Resp=16 B/min, Goss=2 14:13:00 Catheter(s) removed without difficulty 14:13:32 Sheath removed; pressure applied to access site. by Rubia Cummings. 14:13:49 No case complications noted. 14:13:51 Cine recording checked. 14:13:54 Bedside Report will be given. 14:16:21 HR=64 bpm, JNHI=800/83 mmhg, SpO2=97.0 %, Resp=15 B/min, Goss=2 14:17:54 Upon reviewing the images Dr. Salgado has decided to IFR the RCA. 14:21:22 Continuing to hole manual pressure on right fem. art. at this time. 14:21:59 HR=58 bpm, XMJU=894/96 mmhg, SpO2=95.0 %, Resp=16 B/min, Goss=2 14:26:19 HR=60 bpm, PTVA=877/96 mmhg, SpO2=96.0 %, Resp=15 B/min, Goss=2 14:29:14 Manual pressure hold complete. Re-prepping patient. 14:30:00 Bilateral groins prepped with 2% chlorhexidine, and draped after a 3 minute waiting time. 14:31:20 HR=58 bpm, XCVG=770/90 mmhg, SpO2=96.0 %, Resp=13 B/min, Goss=2 14:35:57 Pressure channel 1 zeroed. 14:36:23 HR=58 bpm, XTEF=455/82 mmhg, SpO2=97.0 %, Resp=16 B/min, Goss=2 14:37:59 1 mg VERSED given in lab by Fermin Weinberg RN via Peripheral IV. Ordered by Milo Salgado. 14:38:12 25 mcg FENTANYL given in lab by Fermin Weinberg RN via Peripheral IV. Ordered by Kolton Salgado. 20 mL 1% XYLOCAINE given in lab by Milo Salgado in Right Groin via Subcutaneous. Ordered by Damian 14:39:39 Milo. 14:39:52 Access site was Right Femoral Artery. 14:40:01 A SHEATH, FR6.5 PRELUDE 11CM FR 6.5 was advanced into the Fem Art (right) using the Percuta neous technique. 14:40:16 6000 units HEPARIN given in lab by Fermin Weinberg RN via Peripheral IV. Ordered by Milo Salgado. 14:41:20 HR=59 bpm, AQHQ=258/85 mmhg, SpO2=95.0 %, Resp=14 B/min, Goss=2 A JR 4.0 GUIDE CATHETER FR 6 was advanced over a wire. OMNIPAQUE, 350 MG, 150ML 150ML was used for 14::41 injections. 14:43:02 A PRIME WIRE, VERRATA 185CM 185CM was inserted via Fem Art (right). 14:46:00 Interventional wire has crossed the lesion 14:46:26 HR=61 bpm, ADPD=981/81 mmhg, SpO2=94.0 %, Resp=14 B/min, Goss=2 14:46:33 Flow Wire was was placed in the RCA Prox. The FFR measures ~FFR~ percent. The IFR measures 0.95 Percent. 140 mcg/kg/min ADENOSINE DRIP given in lab by Fermin Weinberg RN via Peripheral IV. Pump/Drip Flow = 646.8 ml/hr 14:46:52 using NaCl .9 with a concentration of 90 mg in 90 ml. Ordered by Milo Salgado. 14:48:46 Activated Clotting Time Drawn 14:50:58 Flow Wire was was placed in the RCA Prox. The FFR measures 0.94 percent. The IFR measures ~IFR~ Percent. 0 units/hr ADENOSINE DRIP STOPPED given in lab by Fermin Weinberg RN. Pump/Drip Flow = 0 ml/hr us ing D5W. Ordered 14:51:13 by Milo Salgado. 14:51:25 HR=69 bpm, MRUW=499/76 mmhg, SpO2=95.0 %, Resp=15 B/min, Goss=2 14:53:38 ACT (Normal Range 90-180) = 248 Assessment: Final Case, HR=60 BPM, Rhythm=sr, RBSH=524/76 mmhg, Chest Pain=0, Edema=None, [place] r=Normal, Skin = Warm, Dry Right Pulses: Post Tib=3, Femoral=3 14:54:58 Left Pulses: Post Tib=3, Femoral=3 Neurological: State=Alert, Ox3, WELCH Respiration: Resp=18 B/min, SpO2=96 %, O2=96 lpm 14:55:38 Catheter(s) removed without difficulty 14::41 In the Fem Art (right) the SHEATH, FR6.5 PRELUDE 11CM FR 6.[address] by Milo Lennon. 14:55:46 Sterile dressing applied to site 14:55:47 No case complications noted. 14:55:49 Cine recording checked. 14:55:51 Bedside Report will be given. 14:56:22 HR=62 bpm, JGSM=784/90 mmhg, SpO2=92.0 %, Resp=20 B/min, Goss=2 15:01:31 Vitals capture stopped. 15:02:51 Patient moved to stretcher End Study - Contrast Media Used In Study Contrast Total Opened (mL) Total Used (mL) Total Wasted (mL) Omnipaque 50 50 0 End Study - Maximum Contrast Load Max Contrast Load (mL) 481.3 End Study - Radiation Exposure Fluoro Time (minutes) 1.2 End Study - Patient Disposition Complications Transferred To Telemetry Bed
--- NOTE | 2018-03-02 15:17 | MR ---
cc: Milo Salgado MD DATE: 03/02/2018 PROCEDURE PERFORMED: FFR of proximal right coronary artery. INDICATION: Unstable angina, positive nuclear stress test, results unknown as it was done in [place]. Coronary artery disease, 50-60% proximal right coronary artery stenosis at a torress maxton, large right coronary artery with reference vessel diameter of 4.5 mm. PROCEDURE: The patient was prepped and draped in the usual sterile fashion. 10 mL of 1% lidocaine was used to locally anesthetic the right common femoral artery. A 6-Greenlandic sheath was placed in the right common femoral artery. 70 units per kilo of heparin was given. ACT time pending at time of dictation. A 6-Greenlandic JR4 guide and 0.014 [place] pressure wire was placed into the aortic root. The guide was withdrawn into the upper ascending aortic root and the introducer was removed and the guide catheter was thoroughly flushed with 20 mL of normal saline. Pressure waveforms were then normalized. I then engaged the ostium of the right coronary artery, passed the 0.014 [place] pressure wire into the mid to distal right coronary artery. IFR was 0.95. We did a 3-minute infusion of 140 mcg/kg/minute of adenosine. FFR was 0.94. The patient tolerated the procedure well. Re-look angiogram revealed no significant change in the right coronary artery. Final ACT 248. CONCLUSION: 1. 50-60% right coronary artery on a torress lisa with a reference vessel diameter of 4.5 mm. 2. IFR equal to 0.95. 3. FFR equal to 0.94. 4. Recommend defer percutaneous coronary intervention. 5. Recommend medical management for coronary artery disease, cardiac risk factor modification. 6. Results explained to the patient in detail. MD JEFFREY Donaldson/KIRBY , 02:53 PM , 03:17 PM
[2018-03-02] MEDS ORDERED: IOHEXOL 350 MG/ML 50 ML BTL (for Cath Lab) OTHER ONE (15:29)
--- NOTE | 2018-03-02 15:58 | EKG ---
Date Performed: 03/01/2018 Time Performed: 17:59:26 PTAGE: 57 years EKG: SINUS BRADYCARDIA LEFT ANTERIOR FASCICULAR BLOCK ABNORMAL ECG No significant change PREVIOUS TRACING : 03/01/2018 14.18 DOCTOR: Eduardo Ruffin Interpretating Date/Time 03/02/2018 15:57:02
--- NOTE | 2018-03-02 15:59 | EKG ---
Date Performed: 03/01/2018 Time Performed: 14:18:47 PTAGE: 57 years EKG: SINUS BRADYCARDIA MARKED LEFT AXIS DEVIATION ABNORMAL ECG No significant change PREVIOUS TRACING : 03/01/2018 11.09 DOCTOR: Eduardo Ruffin Interpretating Date/Time 03/02/2018 15:58:26
[2018-03-02] MEDS ORDERED: SODIUM CHLORIDE 0.9% FLUSH 10 ML FLUSH IV FLUSH SCH (21:00)
[2018-03-02] MEDS: RESP: ALBUTEROL 2.5 MG/IPRATROPIUM 0.5 MG NEB (SCH) NEB (21:08)
[2018-03-03] VITALS (11 sets, daily range): BP systolic 116–146; BP diastolic 79–91; PULSE 52–72; RESP 17–20; TEMP 97.9–98.6; O2SAT 96–98
[2018-03-03 06:30] LABS: AUTOMATED NEUTROPHIL # 3.8 TH/MM3 (1.8-7.7); BASOPHIL # 0.1 TH/MM3 (0-0.2); BASOPHIL % 0.9 % (0.0-2.0); EOSINOPHIL # 0.1 TH/MM3 (0-0.4); EOSINOPHIL % 0.8 % (0.0-4.0); HEMATOCRIT 46.5 % (39.0-51.0); HEMOGLOBIN 15.4 GM/DL (13.0-17.0); LYMPHOCYTE # 1.7 TH/MM3 (1.0-4.8); MEAN CELL VOLUME 90.1 FL (80.0-100.0); MEAN CORPUSCULAR HEMOGLOBIN 29.8 PG (27.0-34.0); MEAN CORPUSCULAR HGB CONC 33.1 % (32.0-36.0); MEAN PLATELET VOLUME 6.7 FL (7.0-11.0); MONO % 9.5 % (0.0-8.0); MONOCYTE # 0.6 TH/MM3 (0-0.9); NEUT % 60.8 % (16.0-70.0); PLATELET COUNT 264 TH/MM3 (150-450); RED BLOOD COUNT 5.16 MIL/MM3 (4.50-5.90); RED CELL DISTRIBUTION WIDTH 13.5 % (11.6-17.2); WHITE BLOOD COUNT 6.2 TH/MM3 (4.0-11.0)
[2018-03-03 06:57] LABS: BICARBONATE 25.4 MEQ/L (21.0-32.0); CALCIUM 8.4 MG/DL (8.5-10.1); CREATININE 0.72 MG/DL (0.60-1.30)
[2018-03-03] MEDS: RESP: ALBUTEROL 2.5 MG/IPRATROPIUM 0.5 MG NEB (SCH) NEB ×2 (08:07→11:03)
--- NOTE | 2018-03-03 08:23 | EKG ---
Date Performed: 03/03/2018 Time Performed: 05:00:08 PTAGE: 57 years EKG: Possible ectopic atrial bradycardia Possible anterior infarct - age undetermined Abnormal E CG NO PREVIOUS TRACING DOCTOR: Marito Julio Interpretating Date/Time 03/03/2018 08:22:20
[2018-03-03] MEDS ORDERED: NITR0.4S SL (09:20)
--- NOTE | 2018-03-03 09:20 | HHI.DS ---
Discharge Summary Admission Date Mar 02, 2018 at 15:14 Discharge Date: Mar 03, 2018 Admitting Diagnosis chest pain (1) Chest pain ICD Code: R07.9 - Chest pain, unspecified Status: Acute (2) COPD (chronic obstructive pulmonary disease) ICD Code: J44.9 - Chronic obstructive pulmonary disease, unspecified Procedures cardiac cath 03/02/[address] Gruber Brief History - From Admission 57-year-old male history of hypertension and COPD presents emergency room for further evaluation chest pain and headache. Onset 830 am. Occurred 15 minutes after taking Imdur. Developed left sided headache. Moderate severity. A few minutes chanell developed left anterior chest pain. Characterized as "being punched." Moderate in severity. Associated symptoms included nausea and diaphoresis. Denied dyspnea or vomiting. Duration of moderate chest discomfort 3 hours. Currently chest discomfort described as a mild ache with intermittent sharp, "nagging" pain. Deep breathing makes discomfort worse. No particular movement or position makes pain better or worse. Headache since resolved. Scheduled for a CT of neck today at [facility]. After scan completed requested to see his PCP regarding above symptoms. The DC recommended EMS transport to ER for further evaluation. Recent abnormal nocardial perfusion study 5 months ago.. Cardiac catheterization scheduled, he unfortunately unable to keep appointment time due to inability to find ride to facility. Unable to reschedule planned cardiac catheterization since. Imdur started 5 months ago after abnormal cardiac stress test. Cardiac testing completed due to intermittent chest pressure. It was uncertain if his chest pressure was cardiac related verses his COPD. CBC/BMP: 03/03/18 0456 03/03/18 0450 Significant Findings Laboratory Tests Test 03/01/18 11:20 03/01/18 14:20 03/02/18 00:30 03/02/18 10:37 Mean Platelet Volume 6.4 FL (7.0-11.0) Neutrophils (%) (Auto) 71.8 % (16.0-70.0) Monocytes (%) (Auto) 10.0 % (0.0-8.0) Calcium Level 8.2 MG/DL (8.5-10.1) Total Creatine Kinase 390 U/L (39-308) 375 U/L (39-308) Creatine Kinase MB 4.2 NG/ML (0.5-3.6) 4.0 NG/ML (0.5-3.6) Troponin I LESS THAN 0.02 NG/ML LESS THAN 0.02 NG/ML LESS THAN 0.02 NG/ML HDL Cholesterol 96.7 MG/DL (40.0-60.0) Test 03/03/18 04:50 03/03/18 04:56 Calcium Level 8.4 MG/DL (8.5-10.1) Mean Platelet Volume 6.7 FL (7.0-11.0) Monocytes (%) (Auto) 9.5 % (0.0-8.0) Imaging Last Impressions Chest X-Ray 03/01/18 1121 Signed Impressions: CONCLUSION: Negative for acute process PE at Discharge GENERAL: Well-nourished, well-developed pleasant middle aged AA male patient in [facility]. SKIN: Warm and dry. No rash. HEENT: Normocephalic. Atraumatic. Pupils equal and round. Mucous membranes pink and moist. CARDIOVASCULAR: Regular rate and rhythm. No murmur appreciated. RESPIRATORY: No accessory muscle use. Clear to auscultation. Breath sounds equal bilaterally. GASTROINTESTINAL: Abdomen soft, non-tender, nondistended. Normoactive bowel sounds x4. MUSCULOSKELETAL: No obvious deformities. Extremities without clubbing, cyanosis , or edema. NEUROLOGICAL: Awake and alert. No obvious cranial nerve deficits. Motor grossly within normal limits. Moving all extremities spontaneously. Normal speech. PSYCHIATRIC: Appropriate mood and affect; insight and judgment normal. Pt update on day of discharge Feels much better. No cp, sob, n/v/d/c. No diaphoresis or lightheadedness. HR into a lower side however patien tis asymptomatic HR in mid 50s. No beta luis anegl indicated due to bradycardia. Was with sob and wheezing yesterday resolved with nebs. Patient says has nebs at home. Eating well. Wants to go home Hospital Course 57-year-old male with history of hypertension and COPD presents with chest pain. Chest pain: Initially admitted to [facility], however patient with abnormal nuclear stress test 5 months ago with plans for outpatient cardiac cath, however has been unable to have procedure due to transportation issues. -CXR reviewed and unremarkable -ACS ruled out with negative serial cardiac enzymes 3, and EKG without acute ischemic changes -Monitor on telemetry -Continue aspirin, imdur -Check lipid panel -Unable to initiate beta-luis angel therapy due to bradycardia -Consult cardiology for cardiac catheterization. S/P cardiac cath by Dr Salgado, no intervention. Medical management is indicated. Lipid panel reviewed start low dose statin COPD: Chronic, no wheezing on exam, stable on room air -Continue patient's duo nebs q6h Hypertension: Chronic, BP fairly well controlled -Continue patient's norvasc 10mg daily -Monitor BP, adjust antihypertensives as needed S/P cardiac catheterization, no intervention , medical management recommended. Patient is with brasycardia asymptomatic and is contraindicated beta luis angel . DC home in stable condition to follow up as OP with PCP and consultants. Pt Condition on Discharge: Stable Discharge Disposition: Discharge Home Discharge Time: > 30 minutes Discharge Instructions DIET: Follow Instructions for: Heart Healthy Diet Activities you can perform: Regular-No Restrictions Follow up Referrals: PCP Follow-up - 2-3 Days New Medications: Atorvastatin (Atorvastatin) 10 Mg Tab 10 MG PO HS for Cholesterol Management, #30 TAB 0 Refills Nitroglycerin SL (Nitrostat SL) 0.4 Mg Subl 0.4 MG SL Q5M PRN for CHEST PAIN, #30 TAB Continued Medications: Albuterol 18 GM Inh (Ventolin Hfa 18 GM Inh) 90 Mcg/Act Aer 2 PUFF INH Q6H PRN for SHORTNESS OF BREATH, #1 INHALER 0 Refills Amlodipine (Amlodipine) 10 Mg Tab 10 MG PO DAILY for Blood Pressure Management, #30 TAB 0 Refills Aspirin (Aspirin) 81 Mg Chew 81 MG CHEW DAILY, TAB 0 Refills Carboxymethylcellulose Sodium 0.5% Opth (Refresh Plus Unit-Dose 0.5% Opth) 0.5% Drops 1 DROP EACH EYE QID for Dry Eye, #1 BOX 0 Refills Ipratropium-Albuterol Neb (Duoneb) 0.5-2.5 Mg/3 Ml Neb 1 NEBULE INH Q6HR NEB for Breathing Treatment, #120 NEBULE 0 Refills Isosorbide Mononitrate ER (Isosorbide Mononitrate ER) 30 Mg Raul 30 MG PO DAILY for Prevent Chest Pain, #30 TAB 0 Refills Naproxen (Naproxen) 500 Mg Tab 500 MG PO BID, #60 TAB 0 Refills Terbinafine Topical (Terbinafine Topical) 1 % Cream 1 APPLIC TOPICAL BID for Manage Fungal Infection, #1 TUBE 0 Refills Dana Simon MD Mar 03, 2018 09:20
[2018-03-03] MEDS ORDERED: ATOR10TA15 PO (09:21)
[2018-03-03] MEDS: ASPIRIN 325 MG TAB PO SCH (09:55)
[2018-03-03] MEDS: ISOSORBIDE MONONITRATE 30 MG CR TAB (IMDUR) PO SCH (09:55)
[2018-03-03] MEDS: SODIUM CHLORIDE 0.9% FLUSH 10 ML FLUSH IV FLUSH SCH (09:56)
--- NOTE | 2018-03-03 10:40 | EKG ---
Date Performed: 03/02/2018 Time Performed: 17:25:22 PTAGE: 57 years EKG: Sinus rhythm Possible left anterior fascicular block rSr'(V1) - probable normal variant Borderline ECG PREVIOUS TRACING : 03/01/2018 17.59 No significant change from previous tracing noted. DOCTOR: Marito Julio Interpretating Date/Time 03/03/2018 10:38:28
== END 2018-03-03 12:21 | disposition home or self-care (01) | DRG 287 ==
LOC: NEPC 11:03 → NEDA 12:37 → NEPHCDU 14:26 → HCIS 03-02 13:29 → OBSVTOIN 03-02 15:14 → HCIS 03-02 16:09
PROVIDERS: ADMIT Hospitalist; ATTEND Hospitalist
PROC: 4A023N7 Measurement of Cardiac Sampling and Pressure, Left Heart, Percutaneous Approach (ICD-10-PCS; principal; 2018-03-02)
PROC: B2111ZZ Fluoroscopy of Multiple Coronary Arteries using Low Osmolar Contrast (ICD-10-PCS; 2018-03-02)
PROC: B2151ZZ Fluoroscopy of Left Heart using Low Osmolar Contrast (ICD-10-PCS; 2018-03-02)
PROC: 4A033BC Measurement of Arterial Pressure, Coronary, Percutaneous Approach (ICD-10-PCS; 2018-03-02)
DX: I25.110 Atherosclerotic heart disease of native coronary artery with unstable angina pectoris (principal); R07.9 Chest pain, unspecified; I10 Essential (primary) hypertension; J44.9 Chronic obstructive pulmonary disease, unspecified; E78.5 Hyperlipidemia, unspecified; R73.03 Prediabetes; R11.0 Nausea; R01.1 Cardiac murmur, unspecified; E78.00 Pure hypercholesterolemia, unspecified; K21.9 Gastro-esophageal reflux disease without esophagitis; M51.36 Other intervertebral disc degeneration, lumbar region; M19.90 Unspecified osteoarthritis, unspecified site; R94.39 Abnormal result of other cardiovascular function study; R00.1 Bradycardia, unspecified; R51 Headache; Z87.891 Personal history of nicotine dependence; Z79.899 Other long term (current) drug therapy
CPT/HCPCS: 71045; 80048; 80061; 82550; 82552; 83735; 83880; 84484; 85002; 85025; 85610; 85730; 93005; 93458; 93571; 94640; 94664; 99152; 99153; C1769; C1887; C1893; J0153; J1644; J2250; J3010; Q9967